=== PATIENT | male | born 1995 | race Hispanic/Latino ===

== ENCOUNTER 2022-03-11 07:12 | Emergency (ER) | payer OTHER ==
[~2022-03-11] VITALS: Ht 162.6 cm; Wt 95.3 kg
[2022-03-11 07:13] VITALS: BP 145/106
[2022-03-11] MEDS ORDERED: PENI500T2 PO (08:20)
[2022-03-11] MEDS ORDERED: IBUP-2077 PO (08:20)
[2022-03-11] MEDS ORDERED: KETOROLAC 60 MG VIAL (30MG/ML) IM ONE (08:30)
[2022-03-11] MEDS ORDERED: PENICILLIN V POTASSIUM 500 MG TABLET PO ONE (08:30)
== END 2022-03-11 08:38 | disposition home or self-care (01) ==
LOC: EDH 07:12
DX: K02.9 Dental caries, unspecified (principal); K08.89 Other specified disorders of teeth and supporting structures
CPT/HCPCS: 99283; 96372; J1885